=== PATIENT | male | born 1985 | race Caucasian/White ===

== ENCOUNTER 2019-01-26 07:48 | Emergency (ER) | payer OTHER ==
[~2019-01-26] VITALS: Ht 167.6 cm; Wt 159.1 kg
[2019-01-26 07:52] VITALS: TEMP 98.1
[2019-01-26 08:24] LABS: BASO # 0.1 (0.0-0.2); BASO % 0.5 % (0.0-2.0); EOS # 0.2 (0.0-0.7); EOS % 1.9 % (0-4.0); GRAN # 6.8 (1.4-6.5); GRAN % 74.2 % (42.2-75.2); HEMOGLOBIN 13.3 g/dl (13.5-18.0); LYMPH # 1.4 (1.2-3.4); LYMPH % 15.8 % (20.0-51.0); MEAN CELL VOLUME 82 fl (80.0-100.0); MEAN CORPUSCULAR HEMOGLOBIN 26 pg (27.0-31.0); MEAN CORPUSCULAR HGB CONC 32 g/dl (33.0-37.0); MEAN PLATELET VOLUME 9.7 fl (7.4-10.4); MONO # 0.7 (0.1-0.6); MONO % 7.2 % (1.7-9.3); PLATELET COUNT 345 K/mm3 (130-400); RED BLOOD COUNT 5.14 M/mm3 (4.20-5.60); REDCELL DISTRIBUTION WIDTH-CV 14.4 % (11.5-14.5)
[2019-01-26 08:32] LABS: ALANINE AMINOTRANSFERASE 34 U/L (21-72); ALBUMIN 3.9 gm/dL (3.5-5.0); ALKALINE PHOSPHATASE 72 U/L (50-136); ANION GAP 12 mmol/L (7-16); AST,SGOT 28 U/L (15-37); BILIRUBIN,TOTAL 0.6 mg/dL (0.0-1.0); BLOOD UREA NITROGEN 11 mg/dL (9-20); CALCIUM 8.9 mg/dL (8.4-10.2); CARBON DIOXIDE 25 mmol/L (22-30); CHLORIDE 103 mmol/L (98-107); CREATININE, serum 0.92 (0.66-1.25); GLUCOSE 105 mg/dL (74-106); INR 1.1 (0.8-3.0); POTASSIUM 3.8 mmol/L (3.4-5.0); PROTHROMBIN TIME 13.1 SECONDS (9.7-12.8); SODIUM 141 mmol/L (137-145); TOTAL PROTEIN 7.6 gm/dL (6.4-8.2)
[2019-01-26 08:34] LABS: PARTIAL THROMBOPLASTIN TIME 30.7 SECONDS (26.0-37.0)
[2019-01-26 08:56] LABS: TROPONIN-I < 0.012 ng/mL (0.000-0.035)
[2019-01-26 11:45] VITALS: BP 115/65; PULSE 73
== END 2019-01-26 11:45 | disposition home or self-care (01) ==
LOC: COL.ER 07:48
PROVIDERS: Family Medicine
DX: G47.30 Sleep apnea, unspecified (principal); R07.89 Other chest pain

== ENCOUNTER → 2020-01-14 | Outpatient (CLI) | payer BC | LOC: ZCOL.LAB 06:23 | DX: Z20.828 Contact with and (suspected) exposure to other viral communicable diseases (principal) ==

== ENCOUNTER 2021-04-20 20:30 | Emergency (ER) | payer SELFPAY ==
[~2021-04-20] VITALS: Ht 167.6 cm; Wt 181.8 kg
[2021-04-20 21:32] LABS: BASO # 0.1 K/mm3 (0.0-0.2); BASO % 0.5 % (0.0-2.0); EOS # 0.3 K/mm3 (0.0-0.7); EOS % 2.2 % (0-4.0); GRAN % 74.7 % (42.2-75.2); HEMOGLOBIN 14.1 g/dl (13.5-18.0); LYMPH # 1.9 K/mm3 (1.2-3.4); LYMPH % 14.5 % (20.0-51.0); MEAN CELL VOLUME 82 fl (80.0-100.0); MEAN CORPUSCULAR HEMOGLOBIN 25 pg (27.0-31.0); MEAN CORPUSCULAR HGB CONC 31 g/dl (33.0-37.0); MEAN PLATELET VOLUME 9.4 fl (7.4-10.4); MONO % 7.5 % (1.7-9.3); PLATELET COUNT 394 K/mm3 (130-400); RED BLOOD COUNT 5.61 M/mm3 (4.20-5.60); REDCELL DISTRIBUTION WIDTH-CV 15.3 % (11.5-14.5)
[2021-04-20 22:03] LABS: ALBUMIN 3.4 gm/dL (3.5-5.0); C-REACTIVE PROTEIN 6.6 mg/dL (0.00-0.50); CALCIUM 9.4 mg/dL (8.4-10.2); CREATININE, serum 0.97 mg/dL (0.72-1.25); POTASSIUM 3.6 mmol/L (3.5-4.5); TOTAL PROTEIN 8.4 gm/dL (6.2-8.1)
[2021-04-20 22:39] LABS: BILIRUBIN,TOTAL 0.6 mg/dL (0.2-1.2)
[2021-04-20] MEDS ORDERED: ZOFRAN ODT4 MG PO (22:46)
[2021-04-20] MEDS ORDERED: NORCO 325 MG-51 TAB PO (22:46)
[2021-04-20 23:18] LABS: COLLECTION METHOD CLEAN CATCH
[2021-04-20 23:27] LABS: BUDDING YEAST Present /hpf; MUCOUS Present /lpf; PH 5 (5-8); SQUAMOUS EPITHELIAL 0-2 /hpf; URINE APPEARANCE Cloudy; URINE BACTERIA None Seen /hpf; URINE BILIRUBIN Negative (NEGATIVE); URINE BLOOD 3+ (NEGATIVE); URINE COLOR Amber; URINE GLUCOSE Negative (NEGATIVE); URINE KETONE Negative (NEGATIVE); URINE LEUKOCYTE ESTERASE Negative (NEGATIVE); URINE NITRATE Negative (NEGATIVE); URINE PROTEIN(semi-quant) 1+ (NEGATIVE); URINE RBC >50 /hpf
[2021-04-21 00:09] VITALS: BP 149/90; PULSE 75; TEMP 98.2
== END 2021-04-21 01:04 | disposition home or self-care (01) ==
LOC: COL.ER 20:30
PROVIDERS: Emergency Medicine
DX: N13.2 Hydronephrosis with renal and ureteral calculous obstruction (principal); F17.220 Nicotine dependence, chewing tobacco, uncomplicated; Z86.16 Personal history of COVID-19
CPT/HCPCS: J1885; J2405; J3010; J7030; Q9967